=== PATIENT | male | born 1940 | race Caucasian/White ===

== ENCOUNTER 2017-06-16 15:20 | Emergency (ER) | payer MEDICARE, BC ==
[~2017-06-16] VITALS: Ht 188 cm; Wt 95.3 kg
--- OUTSIDE RECORDS SUMMARY | 2017-06-16 15:23 | XMS REPORT | Clinical Summary ---
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 Lorazepam 05/19/2017 Could not talk or move 01/2004 Dronedarone 05/19/2017 severe depression, suicidal Penicillins Other (See Comments) Low 05/19/2017 Redness around area Current Medications Prescription Sig. Disp. Refills Start End Date Status Date alfuzosin (UROXATRAL) 10 Take 10 mg by mouth Active mg 24 hr tablet daily. coenzyme Q10 100 mg Take 100 mg by mouth Active capsule daily. cyanocobalamin (VITAMIN Take 1,000 mcg by mouth Active B-12) 1000 MCG tablet daily. difluprednate (DUREZOL) Apply to eye(s). Active 0.05 % Drop apixaban (ELIQUIS) 5 mg Take 5 mg by mouth 2 Active Tab tablet (two) times daily. finasteride (PROSCAR) 5 Take 5 mg by mouth daily. Active mg tablet garlic 1 mg Cap Take by mouth. Active losartan (COZAAR) 25 MG Take 25 mg by mouth Active tablet daily. ginkgo biloba 40 mg Tab Take by mouth. Active multivitamin per tablet Take 1 tablet by mouth Active daily. omega-3 acid ethyl esters Take 2 g by mouth 2 (two) Active (LOVAZA) 1 gram capsule times daily. bromfenac (PROLENSA) 0.07 Apply to eye(s). Active % Drop sertraline (ZOLOFT) 100 Take 100 mg by mouth Active MG tablet daily. polymyxin B 1 drop. Active sulf-trimethoprim 10,000 unit- 1 mg/mL Drop cholecalciferol, vitamin Take 1,000 Units by mouth Active D3, 1,000 unit capsule daily. vitamin E 1000 UNIT Take 1,000 Units by mouth Active capsule daily. Active Problems Not on file Encounters Date Type Specialty Care Team Description 06/14/2017 [facility] Yariel Rae MD Combined forms of Encounter age-related cataract of left eye (Primary Dx) 06/14/2017 Anesthesia Silvia Hyde MD Event 06/14/2017 Procedure Pass 06/14/2017 Surgery Yariel Rae MD EXTRACTION,CATARACT W/IOL 06/13/2017 Hospital Pre-Admission Testing Arrived Encounter 05/24/2017 [facility] Yariel Rae MD Combined forms of Encounter age-related cataract of right eye (Primary Dx) 05/24/2017 Anesthesia Smiley Tapia CRNA Event 05/24/2017 Procedure Pass 05/24/2017 Surgery Yariel Rae MD EXTRACTION,CATARACT W/IOL 05/19/2017 Hospital Pre-Admission Testing Encounter after 06/15/2016 Social History Tobacco Use Types Packs/Day Years Used Date Former Smoker Quit: 02/06/1966 Smokeless Tobacco: Never Used Alcohol Use Drinks/Week oz/Week Comments No Sex Assigned at Date Recorded Not on file Last Filed Vital Signs Vital Sign Reading Time Taken Blood Pressure 120/68 06/14/2017 10:30 AM CDT Pulse 60 06/14/2017 10:30 AM CDT Temperature 36.5 C (97.7 F) 06/14/2017 10:11 AM CDT Respiratory Rate 9 06/14/2017 10:30 AM CDT Oxygen Saturation 95% 06/14/2017 10:30 AM CDT Inhaled Oxygen - - Concentration Weight 95.3 kg (210 lb) 06/13/2017 2:49 PM CDT Height 188 cm (6' 2") 06/13/2017 2:49 PM CDT Body Mass Index 26.96 06/13/2017 2:49 PM CDT Plan of Treatment Not on file Implants Implanted Type Area Precision Filer Hand Device Expiration Model / Identifier Date Serial / Lot Iol Tecnis Preloaded Baldwin 21.0 Ophthalmol Right: Eye BARNARD 2020 PCB00 21.0 Pcb00 21.0 - [id number] LAB:MEDICAL / Implanted: Qty: 1 on 05/24/2017 by [employer] [id number] Yariel Rae MD / Iol Tecnis Preloaded Baldwin 23.0 Ophthalmol Left: Eye BARNARD 2020 PCB00 23.0 Pcb00 23.0 - [id number] [id number] LAB:MEDICAL / Implanted: Qty: 1 on 06/14/2017 by [employer] [id number] Yariel Rae MD / Procedures Procedure Name Priority Date/Time Associated Diagnosis Comments EXTRACTION,CATARACT W/IOL 06/14/2017 Combined form of 9:15 AM CDT age-related cataract, both eyes Case Notes CASE RESCHEDULE D PER CARI ON 03/30/17 "RIGHT EYE" MOVE FROM 05/10/17 TO 05/24/17. "LEFT EYE" MOVE FROM 06/07/17 TO 06/14/17 Special Needs (PACEMAKER /AFIB) ( TYPE OF LENS NOT SPECIFIED) EXTRACTION,CATARACT W/IOL 05/24/2017 Combined form of 11:30 AM CDT age-related cataract, both eyes Case Notes CASE RESCHEDULE D PER CARI ON 03/30/17 "RIGHT EYE" MOVE FROM 05/10/17 TO 05/24/17. "LEFT EYE" MOVE FROM 06/07/17 TO 06/14/17 Special Needs (PACEMAKER /AFIB) (( TYPE OF LENS NOT SPECIFIED) after 06/15/2016 Results Not on fileafter 06/15/2016
--- OUTSIDE RECORDS SUMMARY | 2017-06-16 15:23 | XMS REPORT | Clinical Summary ---
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 Disp. Refills Start End Date Status Date losartan (COZAAR) 25 MG 04/07/19 Active tablet 17 finasteride (PROSCAR) 5 04/12/19 Active mg tablet 17 ELIQUIS 5 mg tablet 02/10/19 Active 17 sertraline (ZOLOFT) 100 02/07/19 Active MG tablet 17 Active Problems Problem Noted Date Marvin rutledge 05/09/2016 Encounters Date Type Specialty Care Team Description 05/16/2017 Hospital Procedural Cardiology Kevin Quiroz MD Sinus node dysfunction; Encounter Atrial fibrillation, unspecified type 05/16/2017 Ancillary Procedural Cardiology Kevin Quiroz MD Sinus node dysfunction; Orders Atrial fibrillation, unspecified type 01/24/2017 Ancillary Procedural Cardiology Kevin Quiroz MD Atrial fibrillation, Orders unspecified type; Sinus node dysfunction 01/20/2017 Hospital Procedural Cardiology Kevin Quiroz MD Atrial fibrillation, Encounter unspecified type; Sinus node dysfunction 10/24/2016 Ancillary Procedural Cardiology Ck Fan MD PhD Sinus jose-tachy Orders syndrome 10/20/2016 Hospital Procedural Cardiology Ck Fan MD PhD Sinus jose-tachy Encounter syndrome 07/21/2016 Hospital Procedural Cardiology Kevni Quiroz MD Sinus node dysfunction; Encounter Atrial fibrillation, unspecified type 07/21/2016 Ancillary Procedural Cardiology Kevin Quiroz MD Sinus node dysfunction; Orders Atrial fibrillation, unspecified type after 06/15/2016 Family History Medical History Relation Name Comments Hypertension Brother Hypertension Mother Stroke Mother Relation Name Status Comments Brother Mother Social History Tobacco Use Types Packs/Day Years Used Date Never Smoker Alcohol Use Drinks/Week oz/Week Comments No Sex Assigned at Date Recorded Not on file Last Filed Vital Signs Not on file Plan of Treatment Health Maintenance Due Date Last Done Comments COLONOSCOPY 09/16/1991 SHINGRIX VACCINE (#1) 09/16/1991 ZOSTER VACCINE 2001 PNEUMOCOCCAL 2006 POLYSACCHARIDE VACCINE AGE 65 AND OVER PNEUMOCOCCAL-13 2006 INFLUENZA VACCINE 09/06/2017 Procedures Procedure Name Priority Date/Time Associated Diagnosis Comments CV PACEMAKER PROGRAMMING Routine 05/16/2017 Sinus node dysfunction DL 3:39 PM CDT Atrial fibrillation, unspecified type CV PACEMAKER DEFIB REMOTE Routine 01/24/2017 Atrial fibrillation, TECH 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 Sinus node dysfunction CV PACEMAKER DEFIB REMOTE Routine 10/24/2016 Sinus jose-tachy TECH SERVICE 7:15 AM CDT syndrome CV PACEMAKER DEFIB REMOTE Routine 07/21/2016 Sinus node dysfunction TECH SERVICE 11:25 AM CDT Atrial fibrillation, unspecified type after 06/15/2016 Results * Cv pacemaker defib or ilr interrogation (05/16/2017 3:39 PM) Specimen Performing Laboratory [facility] [id number] [place] [address] * Cv pacemaker defib or ilr interrogation (01/24/2017 1:20 PM) Specimen Performing Laboratory [facility] [id number] [place] [address] * Cv pacemaker defib or ilr interrogation (10/24/2016 7:15 AM) Specimen Performing Laboratory [facility] [id number] [place] [address] * Cv pacemaker defib or ilr interrogation (07/21/2016 11:25 AM) Specimen Performing Laboratory [address] [id number] [place] [address] after 06/15/2016 Insurance Payer Benefit Subscriber ID Type Phone Address Plan / Group MEDICARE MEDICARE xxxxxxxxxx Medicare [place], [place] PART A AND B BCBS BCBS xxxxxxxxxxxx Indemnity PAR/TRAD PLAN
[2017-06-16] MEDS ORDERED: DEXAMETHASONE SOD PHOS 10 MG/1 ML VIAL IV ONE (15:45)
== END 2017-06-16 16:00 | disposition home or self-care (01) ==
LOC: FSED 15:20
DX: L25.5 Unspecified contact dermatitis due to plants, except food (principal); I10 Essential (primary) hypertension; E78.5 Hyperlipidemia, unspecified; Z95.0 Presence of cardiac pacemaker; Z86.73 Personal history of transient ischemic attack (TIA), and cerebral infarction without residual deficits; Z96.652 Presence of left artificial knee joint; Z96.641 Presence of right artificial hip joint
CPT/HCPCS: 99283; J1100